=== PATIENT | female | born 1980 | race Caucasian/White ===

== ENCOUNTER 2016-10-13 06:00 | Day surgery (SDC) | payer BC ==
[~2016-10-13] VITALS: Ht 180.3 cm; Wt 83.9 kg
[~2016-10-13 06:00] MED LIST: CITALOPRAM HBR20 MG PO; MULTI VITAMIN1 EACH PO; SYNTHROID175 MCG PO
--- NOTE | 2016-10-13 09:39 | NUR ---
10/13/16 0939 Shea Lyon REPORT FROM [employer].
--- NOTE | 2016-10-13 10:30 | NUR ---
ICED WATER AND CRACKERS GIVEN. MOTHER @ BS. CALL LIGHT W/IN REACH.
--- NOTE | 2016-10-13 10:35 | NUR ---
CALL TO MD REGARDING CLARIFICATION OF ORDER FOR DC OF HENRY AND SHE REPORTS HENRY CAN BE DC WHEN PT IS AWAKE AND MOVING.
--- NOTE | 2016-10-13 10:36 | NUR ---
HENRY CATHETER REMOVED WNL AND PT TOLERATES REMOVAL WELL. SCANT AMOUNT OF BLOOD NOTED TO HENRY TUBE. APPROXIMATELY 50 ML BRIGHT YELLOW URINE NOTED TO HENRY OVERNIGHT BAG. PT STANDS AND AMBULATES TO WELL W/RN STANDBY.
--- NOTE | 2016-10-13 10:42 | NUR ---
PT ABLE TO VOID A SCANT AMOUNT OF BLOODY DRAINAGE. BACK IN BED. SCDS ON. CALL LIGHT W/IN REACH. PT TOLERATES CRACKERS AND WATER WELL.
--- NOTE | 2016-10-13 11:35 | NUR ---
MORE ICED WATER GIVEN. PT WAKES EASILY WHEN RN INTO ROOM. PT REPORTS BEING "TIRED". MOTHER REMAINS @ BS.
--- NOTE | 2016-10-13 12:28 | NUR ---
PT CONTINUES TO WAKE EASILY WHEN RN ENTERS ROOM. PT DENIES DESIRE FOR ADD'L PRN @ THIS TIME. PT CONTINUES TO SNACK ON CRACKERS AND TOLERATES THEM WELL.
--- NOTE | 2016-10-13 13:35 | NUR ---
PT UP TO BR W/RN STANDBY. PT AMBULATES WELL AND VOIDS 125 ML BRIGHT YELLOW URINE WITH SMALL BLOOD CLOT NOTED. RIGHT AND MIDDLE ABDOMEN INCISION SITES REINFORCED W/GAUZE AND TAPE. VERBAL DC INSTRUCTIONS GIVEN IN PRESENCE OF PT'S MOTHER AND BOTH VERBALIZE UNDERSTANDING.
--- NOTE | 2016-10-13 14:04 | NUR ---
PT JUST FELL ASLEEP I ENTERED. VERSAID DID IT'S JOB. PT'S MOM KOCUS BY HER SIDE. MOM SEEMED RELAXED, BUT DID REQUEST PRAYER. WILL FOLLOW NEEDED
--- NOTE | 2016-10-13 14:05 | NUR ---
LE 1345: PT DRESSES SELF AND TRANSFERS SELF TO AND PERSONAL VEHICLE WELL.
--- NOTE | 2016-10-27 10:08 | OR ---
[facility] [address] [address], [place] [address] Signed DATE OF PROCEDURE: 10/13/16 SURGEON: Nikia Olmos M.D. 1ST DIRECTOR GENERAL: Dr. Esteves. PREOPERATIVE DIAGNOSES: Dysmenorrhea, irregular menses, menorrhagia. POSTOPERATIVE DIAGNOSES: Dysmenorrhea, irregular menses, menorrhagia. PROCEDURE Total laparoscopic hysterectomy, bilateral salpingectomy, cystoscopy, bilateral ureteral cannulation. ANESTHESIA: General ET. ESTIMATED BLOOD LOSS: 50 mL. DRAINS: Puckett catheter. INDICATIONS AND FINDINGS The patient is a 36-year-old female, 2, para 1, ectopic 1, who has been having increasing issues with dysmenorrhea, menorrhagia, and irregular bleeding. Patient also underwent a recent LEEP procedure for BARRERA-3, the margins were clear. At this point, she desired definitive treatment of her problem. She is not interested in using Mirena. The patient is a current smoker and was not a candidate for OCPs. At the time of surgery, exam under anesthesia was normal and at the time of laparoscopy, the pelvis appeared normal. DESCRIPTION OF PROCEDURE The patient was prepped and draped in the dorsal lithotomy position. A weighted speculum was placed. The anterior lip of the cervix was visualized and grasped with a single-tooth tenaculum. The endocervical canal was then dilated slightly and the uterus sounded to 8 cm. At that point, the VCare was introduced and the balloon inflated at the fundus. The tenaculum and speculum removed. The cup was fitted over the cervix and a locking cap was fitted into place as well. Attention was directed above. The infraumbilical area was injected with 0.5% Marcaine plain and incision made with a knife. Each layer was then serially elevated and incised until the fascia could be opened and identified. Stay sutures were placed on each side of 0 Vicryl. The peritoneum was opened bluntly. The Edbra cannula was then placed and tied into place. Following this, a secondary port was placed just below the level of the umbilicus on the patient's left. This area was transilluminated, injected with Marcaine, incision made with a knife Electronically Signed By: NIKIA OLMOS MD 10/27/16 1008 PATIENT NAME: AKIRA AMADO OPERATIVE REPORT DATE OF : 78 PHYSICIAN: NIKIA OLMOS MD REPORT #: [id number] REPORT IS CONFIDENTIAL AND NOT TO BE RELEASED WITHOUT AUTHORIZATION [facility] [address] [place] [id number] Signed and a 5 mm p o rt placed under direct vision. The pelvis was then inspected and the planned procedure appeared appropriate. Another port was placed on the patient's right in the same location as the left. This area was injected with the Marcaine, incision made with a knife and the Veress needle with the expanding port placed and this was followed by placement of a 10 mm port. Following this, the LigaSure [place] device was used to serially coagulate and divide the patient's left tube, left utero-ovarian pedicle, left round ligament, and these were serially coagulated and divided. At this point, the anterior leaf of the peritoneum was then incised allowing for creation of a partial bladder flap. The peritoneum was taken down posteriorly as well. The uterine vessels were t h en isolated and coagulated multiple times and then divided. Further dissection was done both anteriorly and posteriorly over the cup that could be visualized. Following this, attention was directed to the patient's right side. Again, the same procedure was carried out by serially coagulating and dividing the patient's right tube, utero-ovarian pedicle, and round ligament. Again, the anterior leaf of the peritoneum was incised allowing the bladder to completely fall off anteriorly. Dissection was done posteriorly in the peritoneum as well. The uterine vessels were then skeletonized and coagulated multiple times and then divided. Further dissection was done both anteriorly and posteriorly and at this point, it was felt that the specimen could be removed. The Vungle device was then used to separate the specimen from the vaginal cuff. Following this, the specimen was removed vaginally. The vaginal canal was then blocked with a glove with a single wet lap within. Attention was redirected above and the abdomen was copiously irrigated and inspected. There was no evidence of ongoing bleeding from the cuff. The endo stitch was then used to close the vaginal cuff using a 0 PDS barbed suture. This was carried out from the patient's right uterosacral ligament incorporating both the peritoneum and the vaginal mucosa posteriorly and anteriorly and carrying this across the cuff to the left and then back to the center. Following this, the tubes were removed using the LigaSure device. These were removed through the patient's right hand port. Following this, the pelvis was visualized. There was no evidence of ongoing bleeding. The pressure was decreased as well and again good hemostasis was noted. Preparations were made for closure. The instruments removed from the abdomen aft e r allowing as much CO2 as possible to escape. The fascial incision of the umbilicus was reidentified and closed with running suture of 0 Vicryl. The stay sutures were tied across as well. The skin incisions were closed with subcuticular sutures of 3-0 Vicryl Rapide. Attention was directed down below and the pack removed from the vagina. The Puckett catheter was removed in preparation for cystoscopy. She had received IV fluorescein. The 30 degree scope was used. At that point, there was no evidence of any damage to the bladder. However, no fluorescein stained urine was seen at all and not seen to egress from either of the ureteral orifices. As preparations were made to proceed with ureteral cannulation, the urine did start to become fluorescein stained and this attempt was temporarily abandoned and the bladder re-evaluated. There was fluorescein stained urine, but it could not be seen to be coming from either of the ureteral orifices. Because of this, cannulization of the ureters was done. The 21-Indian Electronically Signed By: NIKIA OLMOS MD 10/27/16 1008 PATIENT NAME: AKIRA AMADO OPERATIVE REPORT DATE OF : 78 PHYSICIAN: NIKIA OLMOS MD REPORT #: [id number] REPORT IS CONFIDENTIAL AND NOT TO BE RELEASED WITHOUT AUTHORIZATION [address] [address] Signed introducer was placed after removal of the original instrument and the scope was placed using a 4 mm Whistle-Tip ureteral catheter. Both of the ureters were cannulized without any difficulty with free movement of the catheter throughout the length of the ureter. Following this, the bladder was drained after removal of the instruments and the Puckett catheter was replaced. She tolerated this procedure very well. All sponge and needle counts were correct. She was taken to the recovery room in good condition. MD BRIANNE Caldwell/Hanna /[id number] cc: KAROLYN Headley DO Electronically Signed By: NIKIA OLMOS MD 10/27/16 1008 PATIENT NAME: AKIRA AMADO OPERATIVE REPORT DATE OF : 78 PHYSICIAN: NIKIA OLMOS MD REPORT #: [id number] REPORT IS CONFIDENTIAL AND NOT TO BE RELEASED WITHOUT AUTHORIZATION
== END 2016-10-13 13:45 | disposition home or self-care (01) ==
LOC: DS 06:00
PROVIDERS: Obstetrics & Gynecology
PROC: 0UT94ZZ Resection of Uterus, Percutaneous Endoscopic Approach (ICD-10-PCS; principal; 2016-10-13 06:45)
PROC: 0UTC4ZZ Resection of Cervix, Percutaneous Endoscopic Approach (ICD-10-PCS; 2016-10-13 06:45)
PROC: 0UB74ZZ Excision of Bilateral Fallopian Tubes, Percutaneous Endoscopic Approach (ICD-10-PCS; 2016-10-13 06:45)
DX: N72 Inflammatory disease of cervix uteri (principal); E03.9 Hypothyroidism, unspecified; F17.210 Nicotine dependence, cigarettes, uncomplicated; G43.909 Migraine, unspecified, not intractable, without status migrainosus; F32.9 Major depressive disorder, single episode, unspecified; Z98.818 Other dental procedure status; Z88.0 Allergy status to penicillin; Z91.013 Allergy to seafood; Z98.890 Other specified postprocedural states; Z79.899 Other long term (current) drug therapy
CPT/HCPCS: 00944; J0330; J0694; J1100; J1644; J1885; J2250; J2370; J2405; J2704; J2765; J3010; J7120